=== PATIENT | male | born 1945 | race Caucasian/White ===

== ENCOUNTER → 2016-05-21 | Outpatient (CLI) | payer OTHER | END | disposition home or self-care (01) | LOC: CFH 08:46 | PROVIDERS: ATTEND Internal Medicine Cardiovascular Disease | DX: I08.3 Combined rheumatic disorders of mitral, aortic and tricuspid valves (principal); I37.1 Nonrheumatic pulmonary valve insufficiency | CPT/HCPCS: 93306 ==

== ENCOUNTER → 2017-05-19 | Outpatient (CLI) | payer OTHER | END | disposition home or self-care (01) | LOC: CVU 07:55 | PROVIDERS: ATTEND Internal Medicine Cardiovascular Disease | DX: I08.2 Rheumatic disorders of both aortic and tricuspid valves (principal); I10 Essential (primary) hypertension | CPT/HCPCS: 93306 ==

== ENCOUNTER → 2017-11-13 | Outpatient (CLI) | payer OTHER ==
[~2017-11-13] MED LIST: OMNIPAQUE 350 MG/ML, 100ML BOTTLE ONE
== END | disposition home or self-care (01) ==
LOC: CFH 09:04
PROVIDERS: ATTEND Internal Medicine Cardiovascular Disease
DX: I71.2 Thoracic aortic aneurysm, without rupture (principal)
CPT/HCPCS: 71275; Q9967

== ENCOUNTER → 2018-06-01 | Outpatient (CLI) | payer OTHER | END | disposition home or self-care (01) | LOC: CFH 10:00 | PROVIDERS: ATTEND Internal Medicine Cardiovascular Disease | DX: I08.3 Combined rheumatic disorders of mitral, aortic and tricuspid valves (principal); I11.9 Hypertensive heart disease without heart failure; I44.0 Atrioventricular block, first degree; I71.2 Thoracic aortic aneurysm, without rupture; I20.9 Angina pectoris, unspecified; E78.5 Hyperlipidemia, unspecified | CPT/HCPCS: 78452; 93017; 93306; A9502 ==

== ENCOUNTER 2018-06-18 09:59 | Day surgery (SDC) | payer OTHER ==
[~2018-06-18] VITALS: Ht 190.5 cm; Wt 84.0 kg
[2018-06-18] MEDS ORDERED: SODIUM CHLORIDE 0.9% 1,000 ML IV SCH (10:29)
[2018-06-18] MEDS ORDERED: HYDR12.517 PO (10:34)
[2018-06-18] MEDS ORDERED: ASPI-496 PO (10:34)
[2018-06-18] MEDS ORDERED: MULT-249 PO (10:34)
[2018-06-18] MEDS ORDERED: BENA40TA3 PO (10:34)
[2018-06-18] MEDS ORDERED: ATOR40TA PO (10:34)
[2018-06-18] MEDS ORDERED: TAMS-11 PO (10:34)
[2018-06-18 10:36] VITALS: BP 105/76
[2018-06-18] MEDS ORDERED: MIDAZOLAM 1 MG/ML, 5ML ONE (10:50)
[2018-06-18] MEDS ORDERED: LIDOCAINE 1%, 20ML ONE (10:50)
[2018-06-18] MEDS ORDERED: FENTANYL PF 100 MCG/2ML ONE (10:51)
[2018-06-18] MEDS ORDERED: PLEASE ENTER HEIGHT AND WEIGHT MC SCH (11:00)
== END 2018-06-18 16:03 | disposition home or self-care (01) ==
LOC: CACL 09:59
PROVIDERS: ATTEND Internal Medicine Cardiovascular Disease
DX: I25.10 Atherosclerotic heart disease of native coronary artery without angina pectoris (principal); I77.1 Stricture of artery; Q23.1 Congenital insufficiency of aortic valve; I71.4 Abdominal aortic aneurysm, without rupture; I71.2 Thoracic aortic aneurysm, without rupture; I12.9 Hypertensive chronic kidney disease with stage 1 through stage 4 chronic kidney disease, or unspecified chronic kidney disease; N18.2 Chronic kidney disease, stage 2 (mild); E78.5 Hyperlipidemia, unspecified; N40.0 Benign prostatic hyperplasia without lower urinary tract symptoms; E78.00 Pure hypercholesterolemia, unspecified; Z79.899 Other long term (current) drug therapy; Z79.82 Long term (current) use of aspirin
CPT/HCPCS: 93454; 99156; 99157; C1769; C1894; J2250; J3010; Q9967; 93567

== ENCOUNTER → 2018-07-24 | Outpatient (CLI) | payer OTHER ==
[~2018-07-24] MED LIST changes: +ASPI-496 PO; +ATOR40TA PO; +BENA40TA3 PO; +FINA5TAB4 PO; +HYDR12.517 PO; +MULT-249 PO; +TAMS-11 PO
== END | disposition home or self-care (01) ==
LOC: CFH 12:40
PROVIDERS: ATTEND Internal Medicine Cardiovascular Disease
DX: I65.23 Occlusion and stenosis of bilateral carotid arteries (principal); I71.2 Thoracic aortic aneurysm, without rupture
CPT/HCPCS: 71275; 82565; 93880; Q9967

== ENCOUNTER 2019-05-05 08:22 | Outpatient (CLI) | payer OTHER ==
[~2019-05-05 08:22] MED LIST changes: -OMNIPAQUE 350 MG/ML, 100ML BOTTLE ONE; +WARF2.5T32 PO-COUM
[2019-05-05] MEDS ORDERED: OMNIPAQUE 350 MG/ML, 100ML BOTTLE ONE (15:16)
== END 2019-05-05 23:59 | disposition home or self-care (01) ==
LOC: CFH 08:22
PROVIDERS: ATTEND Internal Medicine Cardiovascular Disease
DX: I71.2 Thoracic aortic aneurysm, without rupture (principal); K76.0 Fatty (change of) liver, not elsewhere classified; R91.1 Solitary pulmonary nodule; M47.814 Spondylosis without myelopathy or radiculopathy, thoracic region
CPT/HCPCS: 71275; 82565; Q9967

== ENCOUNTER → 2019-11-12 | Outpatient (CLI) | payer OTHER | END | disposition home or self-care (01) | LOC: CFH 08:53 | PROVIDERS: ATTEND Internal Medicine Cardiovascular Disease | DX: I36.1 Nonrheumatic tricuspid (valve) insufficiency (principal) | CPT/HCPCS: 93306 ==

== ENCOUNTER → 2019-12-30 | Outpatient (CLI) | payer OTHER | END | disposition home or self-care (01) | LOC: CFH 14:40 | PROVIDERS: ATTEND Urology | DX: N21.0 Calculus in bladder (principal); M51.37 Other intervertebral disc degeneration, lumbosacral region; Z87.442 Personal history of urinary calculi | CPT/HCPCS: 74176 ==

== ENCOUNTER 2020-10-23 18:18 | Inpatient (IN) | payer OTHER ==
[~2020-10-23] VITALS: Ht 190.5 cm; Wt 84.4 kg
--- NOTE | 2020-10-23 18:24 | NUR ---
NA X1
--- NOTE | 2020-10-23 18:51 | NUR ---
bgl in trage 87
[2020-10-23] MEDS ORDERED: SODIUM CHLORIDE FLUSH 10ML SYR IVF ONE ×2 (19:00→22:30)
[2020-10-23 19:12] LABS: BASOPHILS % (AUTO) 0 % (0-1); EOSINOPHILS % (AUTO) 0 % (1-7); LYMPHOCYTES % (AUTO) 10 % (22-44); MEAN CORPUSCULAR HEMOGLOBIN 31.6 pg (27.5-34.5); MEAN CORPUSCULAR HGB CONC 34.3 g/dL (33.2-36.2); MEAN PLATELET VOLUME 8.3 fL (7.4-10.4); MONOCYTES % (AUTO) 4 % (2-9); NEUTROPHILS % (AUTO) 85 % (42-75); PLATELET COUNT 203 x10^3/uL (130-400); RED BLOOD COUNT 5.27 x10^6/uL (4.38-5.82); RED CELL DISTRIBUTION WIDTH 13.9 % (9.4-14.8)
[2020-10-23 19:18] LABS: ALBUMIN 3.5 g/dL (3.4-5.0); ANION GAP 7 mmol/L (5-15); CALCIUM 8.6 mg/dL (8.5-10.1); CHLORIDE 109 mmol/L (98-107)
[2020-10-23 19:21] LABS: ALANINE AMINOTRANSFERASE 26 U/L (12-78); ALKALINE PHOSPHATASE 102 U/L (45-117); BILIRUBIN,TOTAL 1.3 mg/dL (0.2-1.0); CREATININE 1.04 mg/dL (0.7-1.3); TOTAL PROTEIN 7.8 g/dL (6.4-8.2)
--- NOTE | 2020-10-23 21:22 | NUR ---
CT PENDING IV.
[2020-10-23] MEDS ORDERED: ONDANSETRON 2MG/ML, 2ML ONE (22:27)
[2020-10-23] MEDS ORDERED: MORPHINE SULFATE 4 MG/ML, 1ML ONE (22:27)
[2020-10-23] MEDS ORDERED: SODIUM CHLORIDE 0.9% 1,000ML IVBOLUS ONE (22:30)
[2020-10-23] MEDS ORDERED: MORPHINE SULFATE 4 MG/ML, 1ML IVPush PRN (22:30)
[2020-10-23] MEDS ORDERED: ONDANSETRON 2MG/ML, 2ML IVPush ONE (22:30)
--- NOTE | 2020-10-23 22:38 | NUR ---
PT BACK FROM CT. ATTACHED TO MONITORS. DOMINIK POSADA. RESTIN IN BED WATCHING TV
[2020-10-23 22:43] LABS: MICROSCOPIC AUTO
[2020-10-23] MEDS ORDERED: OMNIPAQUE 350 MG/ML, 100ML BOTTLE ONE (22:50)
[2020-10-23] MEDS ORDERED: BENA20TA54 PO (23:52)
[2020-10-24] MEDS ORDERED: ONDANSETRON 2MG/ML, 2ML IVPush PRN
[2020-10-24] MEDS ORDERED: ACETAMINOPHEN 325 MG TABLET PO PRN
[2020-10-24 00:07] LABS: INTERNATIONAL NORMALIZED RATIO 1.07 (0.93-1.1); PROTHROMBIN TIME 11.4 Seconds (9.6-11.5)
--- NOTE | 2020-10-24 01:00 | NUR ---
PT C/O LLQ PAIN ONSET A FEW DAYS AGO. WAS SEEN AT [facility]RG[facility], REFERRED TO ED. HAD APPARENTLY LOW BLOOD SUGAR, CONSTIPATION, DENIES ANY BLOOD IN STOOL. DENIES N/V/FEVERS. triage note
--- NOTE | 2020-10-24 01:03 | NUR ---
gave rpeort to jerry
[2020-10-24 01:23] VITALS: BP 133/82
[2020-10-24 01:27] VITALS: BP 133/82
[2020-10-24] MEDS: POLYETHYLENE GLYCOL 17 GM PACKET PO SCH ×3 (02:12→22:21)
[2020-10-24] MEDS: BISACODYL 10 MG SUPP PR SCH ×3 (02:13→11:24)
[2020-10-24 07:52] VITALS: BP 113/73
[2020-10-24] MEDS: MULTIVITAMINS/MINERALS TABLET PO SCH (09:00)
[2020-10-24] MEDS: ASPIRIN 81 MG TABLET EC PO SCH (09:00)
[2020-10-24] MEDS: BENAZEPRIL 20 MG TABLET PO SCH (09:01)
[2020-10-24] MEDS: TAMSULOSIN 0.4 MG CAP.ER.24H PO SCH (09:01)
[2020-10-24] MEDS: SENNA/DOCUSATE TABLET PO SCH ×2 (09:01→18:06)
[2020-10-24] MEDS: FINASTERIDE 5 MG TABLET PO SCH (09:06)
[2020-10-24] MEDS ORDERED: POLYETHYLENE GLYCOL 17 GM PACKET PO SCH (10:30)
[2020-10-24] MEDS ORDERED: POLY17PO5 PO ×2 (11:24)
[2020-10-24] MEDS ORDERED: SENN-211 PO (11:24)
[2020-10-24 11:33] LABS: BASOPHILS % (AUTO) 1 % (0-1); EOSINOPHILS % (AUTO) 2 % (1-7); LYMPHOCYTES % (AUTO) 26 % (22-44); MEAN CORPUSCULAR HEMOGLOBIN 32.3 pg (27.5-34.5); MEAN PLATELET VOLUME 8.5 fL (7.4-10.4); MONOCYTES % (AUTO) 10 % (2-9); NEUTROPHILS % (AUTO) 62 % (42-75); PLATELET COUNT 173 x10^3/uL (130-400); RED BLOOD COUNT 4.61 x10^6/uL (4.38-5.82); RED CELL DISTRIBUTION WIDTH 13.8 % (9.4-14.8)
[2020-10-24 11:45] LABS: ANION GAP 6 mmol/L (5-15); CALCIUM 7.9 mg/dL (8.5-10.1); CHLORIDE 111 mmol/L (98-107); CREATININE 0.93 mg/dL (0.7-1.3)
[2020-10-24] MEDS ORDERED: POTASSIUM CHLORIDE 20 MEQ TAB.ER.PRT PO ONE (12:30)
[2020-10-24] MEDS ORDERED: POTASSIUM CHLORIDE 20 MEQ TAB.ER.PRT ONE (12:36)
[2020-10-24 14:04] VITALS: BP 98/57
[2020-10-24] MEDS ORDERED: WARFARIN 2.5 MG TABLET PO-COUM SCH (18:00)
[2020-10-24] MEDS: POTASSIUM CHLORIDE 10 MEQ in D5%-LACTATED RINGERS 1,000 ML IV SCH (18:30)
[2020-10-24 19:36] VITALS: BP 115/71
[2020-10-24] MEDS: ERYTHROMYCIN 250 MG in SODIUM CHLORIDE 0.9% 100 ML IV SCH (20:16)
[2020-10-24] MEDS ORDERED: ATORVASTATIN 20 MG TABLET PO SCH (21:00)
[2020-10-25 02:58] VITALS: BP 117/75
[2020-10-25] MEDS: ERYTHROMYCIN 250 MG in SODIUM CHLORIDE 0.9% 100 ML IV SCH ×2 (02:59→11:30)
[2020-10-25 05:55] LABS: BASOPHILS % (AUTO) 1 % (0-1); EOSINOPHILS % (AUTO) 4 % (1-7); LYMPHOCYTES % (AUTO) 29 % (22-44); MEAN CORPUSCULAR HEMOGLOBIN 32.2 pg (27.5-34.5); MEAN CORPUSCULAR HGB CONC 34.8 g/dL (33.2-36.2); MEAN PLATELET VOLUME 8.1 fL (7.4-10.4); MONOCYTES % (AUTO) 8 % (2-9); NEUTROPHILS % (AUTO) 59 % (42-75); PLATELET COUNT 149 x10^3/uL (130-400); RED BLOOD COUNT 4.39 x10^6/uL (4.38-5.82); RED CELL DISTRIBUTION WIDTH 14.2 % (9.4-14.8)
[2020-10-25 06:03] LABS: ANION GAP 4 mmol/L (5-15); CALCIUM 7.9 mg/dL (8.5-10.1); CHLORIDE 113 mmol/L (98-107)
[2020-10-25 06:04] LABS: CREATININE 0.83 mg/dL (0.7-1.3)
[2020-10-25 06:53] VITALS: BP 110/72
[2020-10-25] MEDS: POTASSIUM CHLORIDE 10 MEQ in D5%-LACTATED RINGERS 1,000 ML IV SCH (07:54)
[2020-10-25] MEDS: MULTIVITAMINS/MINERALS TABLET PO SCH (09:00)
[2020-10-25] MEDS: SENNA/DOCUSATE TABLET PO SCH ×2 (09:00→10:28)
[2020-10-25] MEDS: BISACODYL 10 MG SUPP PR SCH (09:00)
[2020-10-25] MEDS ORDERED: POTASSIUM PHOSPHATE 22 MEQ in SODIUM CHLORIDE 0.9% 500 ML IV ONE (10:00)
[2020-10-25] MEDS ORDERED: BENAZEPRIL 10 MG TABLET ONE (10:20)
[2020-10-25] MEDS: ASPIRIN 81 MG TABLET EC PO SCH (10:27)
[2020-10-25] MEDS: FINASTERIDE 5 MG TABLET PO SCH (10:27)
[2020-10-25] MEDS: BENAZEPRIL 20 MG TABLET PO SCH (10:27)
[2020-10-25] MEDS: TAMSULOSIN 0.4 MG CAP.ER.24H PO SCH (10:27)
[2020-10-25] MEDS: POLYETHYLENE GLYCOL 17 GM PACKET PO SCH (10:28)
[2020-10-25 12:16] VITALS: BP 117/73
[2020-10-25] MEDS ORDERED: SENN-211 PO (14:28)
[2020-10-25] MEDS ORDERED: POLY17PO5 PO (14:28)
[2020-10-25 20:04] VITALS: BP 117/73
== END 2020-10-25 17:50 | disposition home or self-care (01) | DRG 392 ==
LOC: ED 21:42 → EDIP 23:22 → 4NE 10-24 01:04
PROVIDERS: ADMIT Internal Medicine; ATTEND Internal Medicine
DX: K59.81 Ogilvie syndrome (principal); K56.0 Paralytic ileus; I10 Essential (primary) hypertension; N40.0 Benign prostatic hyperplasia without lower urinary tract symptoms; E78.5 Hyperlipidemia, unspecified; E87.6 Hypokalemia; E83.39 Other disorders of phosphorus metabolism; I25.10 Atherosclerotic heart disease of native coronary artery without angina pectoris; R31.29 Other microscopic hematuria; Z79.01 Long term (current) use of anticoagulants; Z95.2 Presence of prosthetic heart valve; Z79.899 Other long term (current) drug therapy
CPT/HCPCS: 36415; 74021; 96374; 99285; J7121; 74177; 80048; 80053; 81001; 82962; 83690; 83735; 84100; 85025; 85610; G0378; J1364; J2405; J3480; Q9967; J2270; J7030

== ENCOUNTER 2020-11-01 08:46 | Outpatient (CLI) | payer OTHER ==
[~2020-11-01 08:46] MED LIST changes: +BENA20TA54 PO; +POLY17PO5 PO; +SENN-211 PO
== END 2020-11-01 23:59 | disposition home or self-care (01) ==
LOC: CVU 08:46
PROVIDERS: ATTEND Internal Medicine Cardiovascular Disease
DX: I08.8 Other rheumatic multiple valve diseases (principal); I11.9 Hypertensive heart disease without heart failure
CPT/HCPCS: 93306; 93356